=== PATIENT | male | born 1950 | race Caucasian/White ===

== ENCOUNTER → 2017-08-01 | Day surgery (SDC) | payer MEDICARE ==
[~2017-08-01] VITALS: Ht 167.6 cm; Wt 82.6 kg
[~2017-08-01] MED LIST: AMLODIPINE BESYL5 MG PO; ATORVASTATIN CA20 M1 PO; LISINOPRIL20 MG PO
--- NOTE | ~2017-08-01 | PROC NOTE ---
[place], [place] PROCEDURE NOTE NAME: IZABELLA SALGADO [facility] #: [id number] UNIT #: [id number] ROOM: DOCTOR: JU ABRAHAM MD BIRTHDATE: [birth year] DOS: 08/01/2017 PREOPERATIVE DIAGNOSES: Diverticulosis, history of benign sigmoid colon stricture. POSTOPERATIVE DIAGNOSIS: Diverticulosis. PROCEDURE: Colonoscopy. ENDOSCOPIST: Ju Abraham MD PUMP ASSEMBLER: NABOR. ANESTHESIA: MAC. INDICATIONS: This is a 67-year-old gentleman who has got a previous history of colonoscopy that revealed diverticulosis, associated benign sigmoid colon stricture. He is here for a screening examination. The procedure and its complications were explained to the patient in detail preoperatively. Complications that were discussed included but were not limited to, bleeding, colon perforation, missed lesions and prolonged pain. He agreed to proceed. DESCRIPTION OF PROCEDURE: After identifying the patient, the patient was brought to the endoscopy suite and placed in the left lateral position. After IV sedation was administered, a timeout procedure was called and a digital rectal exam was performed. An adult colonoscope was now introduced into the anal canal and advanced sequentially into the rectum, sigmoid colon, descending colon, transverse colon and ascending colon, up to the cecum. Upon reaching the cecum, the scope was withdrawn. Total withdrawal time was approximately 6 minutes and 45 seconds. There was found to be sigmoid diverticulosis, but no evidence of any narrowing or stricture of any part of the colon. Upon reaching the rectum, the scope was retroflexed and he was found to have uncomplicated internal hemorrhoids as well. The scope was withdrawn. The patient was brought back to the recovery room in stable fashion. There were no complications. Dr. Ju Abraham, the attending endoscopist, was present throughout the operating case. Ju Abraham MD CM:PROCNOTE:PROCEDURE NOTE [id number] JU ABRAHAM MD
[2017-08-01 08:30] VITALS: BP 141/82
[2017-08-01 09:25] VITALS: BP 131/87
[2017-08-01 09:40] VITALS: BP 133/88
[2017-08-01 09:55] VITALS: BP 134/90
== END | disposition home or self-care (01) ==
LOC: SDC 07-30 13:15
DX: K57.30 Diverticulosis of large intestine without perforation or abscess without bleeding (principal); Z86.010 Personal history of colon polyps; I10 Essential (primary) hypertension; E78.5 Hyperlipidemia, unspecified; Z79.899 Other long term (current) drug therapy